=== PATIENT | male | born 1985 | race Caucasian/White ===

== ENCOUNTER 2017-01-10 00:54 | Emergency (ER) | payer SELFPAY ==
[~2017-01-10] VITALS: Ht 188 cm; Wt 104.5 kg
[2017-01-10 00:58] VITALS: BP 160/111
[2017-01-10] MEDS ORDERED: NAPROXEN500 MG PO (01:12)
[2017-01-10] MEDS ORDERED: FLEXERIL10 MG PO (01:12)
== END 2017-01-10 01:56 | disposition home or self-care (01) ==
LOC: EME 00:54
DX: S20.229A Contusion of unspecified back wall of thorax, initial encounter (principal); W07.XXXA Fall from chair, initial encounter
CPT/HCPCS: 72070; 99281; 99284